=== PATIENT | female | born 1975 | race Caucasian/White ===

== ENCOUNTER 2021-01-25 22:17 | Emergency (ER) | payer BC, OTHER ==
[2021-01-26] MEDS ORDERED: ERYTHROMYCIN OP1 GM OP (02:41)
== END 2021-01-26 03:10 | disposition home or self-care (01) ==
LOC: ER1 22:17
DX: H57.12 Ocular pain, left eye (principal); Z77.098 Contact with and (suspected) exposure to other hazardous, chiefly nonmedicinal, chemicals
CPT/HCPCS: 99283